=== PATIENT | male | born 1965 | race Caucasian/White ===

== ENCOUNTER 2025-02-17 17:02 | Inpatient (IN) | payer MEDICAID ==
[~2025-02-17 17:02] MED LIST: QUET200T30 PO
[2025-02-17] MEDS ORDERED: ZOLPIDEM TARTRATE 10 MG TABLET PO PRN (17:15)
[2025-02-18 01:44] VITALS: RESP 18
[2025-02-18 08:51] VITALS: RESP 16
[2025-02-18] MEDS: DIVALPROEX SODIUM 500 MG DR TABLET PO SCH (16:47)
[2025-02-18 20:36] VITALS: RESP 16
[2025-02-19 08:52] VITALS: RESP 18
[2025-02-19 20:20] VITALS: RESP 18
[2025-02-20 08:36] VITALS: RESP 18
[2025-02-20 20:44] VITALS: RESP 18
[2025-02-21 08:42] VITALS: RESP 18
[2025-02-21 20:26] VITALS: RESP 18
[2025-02-22] MEDS ORDERED: ACETAMINOPHEN 325 MG TABLET PO PRN (01:00)
[2025-02-22] MEDS ORDERED: IBUPROFEN 600 MG TABLET PO PRN (01:00)
[2025-02-22] MEDS ORDERED: BACITRACIN 28 GM OINTMENT TP PRN (01:00)
[2025-02-22] MEDS ORDERED: DOCUSATE SODIUM 100 MG CAPSULE PO PRN (01:00)
[2025-02-22] MEDS ORDERED: ALBUTEROL SULFATE HFA 90 MCG/PUFF 8 GM INHALER IH PRN (01:00)
[2025-02-22] MEDS ORDERED: ONDANSETRON 4 MG TABLET PO PRN (01:00)
[2025-02-22] MEDS ORDERED: MAGNESIUM HYDROXIDE SUSPENSION 30 ML UDCUP PO PRN (01:00)
[2025-02-22] MEDS ORDERED: BENZOCAINE/MENTHOL [CEPACOL] LOZENGE PO PRN (01:00)
[2025-02-22] MEDS ORDERED: PETROLATUM,WHITE 28 GM JELLY TP PRN (01:00)
[2025-02-22] MEDS ORDERED: LOPERAMIDE HCL 2 MG CAPSULE PO PRN (01:00)
[2025-02-22] MEDS ORDERED: MAG HYDROX/ALUMINUM HYD/SIMETH ES 30 ML SUSPENSION UDCUP PO PRN (01:00)
[2025-02-22] MEDS ORDERED: OMEPRAZOLE 20 MG CAPSULE PO PRN (01:00)
[2025-02-22] MEDS ORDERED: DIVA-112 PO (17:46)
[2025-02-22] MEDS ORDERED: QUET300T2 PO (17:49)
== END 2025-02-22 19:28 | disposition home or self-care (01) | DRG 750 ==
LOC: B3A 20:13
PROVIDERS: ADMIT Psychiatry & Neurology Psychiatry; ATTEND Psychiatry & Neurology Psychiatry
DX: F25.9 Schizoaffective disorder, unspecified (principal); F41.9 Anxiety disorder, unspecified; Z91.199 Patient's noncompliance with other medical treatment and regimen due to unspecified reason
CPT/HCPCS: Z7610